=== PATIENT | male | born 1955 | race Caucasian/White ===

== ENCOUNTER 2016-05-30 18:50 | Emergency (ER) | payer SELFPAY ==
[2016-05-30 19:16] VITALS: BP 147/87; PULSE 85; RESP 20; TEMP 98.2; O2SAT 100
--- NOTE | 2016-05-30 20:11 | C.PDOC ---
History Of Present Illness 61 y/o male with past medical history of cataracts presents to emergency department with complaint of right eye redness onset earlier today. Patient states he noticed redness after eating lunch. 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 Otherwise, denies any eye discharge , eye pain, visual changes, headache, nausea, vomiting, chest pain, shortness of breath, or other associated symptoms. Patient notes he does not wear glasses or contacts. Time Seen by Provider: 05/30/16 19:17 Chief Complaint (Nursing): Eye Problem History Per: Patient History/Exam Limitations: no limitations Onset/Duration Of Symptoms: Hrs Current Symptoms Are (Timing): Still Present Injury To Eye?: No Quality: denies: "Pain" Wears Contact Lens?: No Associated Symptoms: Other (redness). denies: Pain, Decreased Vision, Discharge From Eye Past Medical History Reviewed: Historical Data, Nursing Documentation, Vital Signs Vital Signs: Last Vital Signs Temp 98.2 F 05/30/16 19:12 Pulse 85 05/30/16 19:12 Resp 20 05/30/16 19:12 BP 147/87 05/30/16 19:12 Pulse Ox 100 05/30/16 21:38 Family History: States: Unknown Family Hx - Social History Hx Tobacco Use: No Hx Alcohol Use: No Hx Substance Use: No - Immunization History Hx Tetanus Toxoid Vaccination: Yes Hx Influenza Vaccination: No Hx Pneumococcal Vaccination: No Review Of Systems Except As Marked, All Systems Reviewed And Found Negative. Constitutional: Negative for: Fever Eyes: Positive for: Conjunctivae Inflammation, Redness. Negative for: Pain, Vision Change Respiratory: Negative for: Cough, Shortness of Breath, Wheezing Skin: Negative for: Rash Physical Exam - Physical Exam Appears: Non-toxic, No Acute Distress Skin: Normal Color, Warm, Dry Head: Atraumatic, Normacephalic Eye(s): bilateral: PERRL, EOMI, right: Other (right sided conjunctival hemorrhage to lateral aspect of eye, does not cross limbus) Ear(s): Bilateral: Normal Nose: Normal Oral Mucosa: Moist Throat: Normal, No Erythema, No Exudate Neck: Supple Chest: Symmetrical Cardiovascular: Rhythm Regular Respiratory: Normal Breath Sounds, No Rales, No Rhonchi, No Wheezing Gastrointestinal/Abdominal: Soft, No Tenderness Back: Normal Inspection Extremity: Normal ROM, Capillary Refill (< 2 sec. ) Neurological/Psych: Oriented x3 ED Course And Treatment O2 Sat by Pulse Oximetry: 100 (RA) Pulse Ox Interpretation: Normal Progress Note: On reassessment, patient is resting comfortably, and is in no acute distress. Patient instructed to follow up with clinic/PMD within 1-2 days. Disposition - Disposition Referrals: Roberto Marin MD [Staff Provider] - Disposition: HOME/ ROUTINE Disposition Time: 20:10 Condition: STABLE Additional Instructions: Vaya a blas mdico o la clnica en 2-5 brewer sin falta, para mas evaluacin. Volver a la basilia de emergencia en cualquier momento si los sntomas persisten o empeoran. Instructions: Subconjunctival Hemorrhage (ED) Print Language: SINHALA - Clinical Impression Clinical Impression: Subconjunctival hemorrhage of right eye - PA / CURTAIN STRETCHER / Resident Statement MD/DO has reviewed & agrees with the documentation as recorded. - Scribe Statement The provider has reviewed the documentation as recorded by the Scribkan Dailey All medical record entries made by the Scribkan were at my direction and personally dictated by me. I have reviewed the chart and agree that the record accurately reflects my personal performance of the history, physical exam, medical decision making, and the department course for this patient. I have also personally directed, reviewed, and agree with the discharge instructions and disposition.
== END 2016-05-30 21:10 | disposition home or self-care (01) ==
LOC: C.ER 18:50
DX: H11.31 Conjunctival hemorrhage, right eye (principal)